=== PATIENT | male | born 1970 ===

== ENCOUNTER → 2023-04-17 | Outpatient (CLI) | payer BC ==
[2023-04-17 12:11] LABS: URINE CREATININE RANDOM 113.9 mg/dL
[2023-04-17 12:18] LABS: BUN 18 mg/dl (9-23); CHLORIDE 103 mmol/L (98-107); POTASSIUM 4.1 mmol/L (3.4-5.1)
== END | disposition home or self-care (01) ==
LOC: LAB 11:26
PROVIDERS: ATTEND Internal Medicine Nephrology
DX: I10 Essential (primary) hypertension (principal); E11.9 Type 2 diabetes mellitus without complications